=== PATIENT | female | born 1980 | race Caucasian/White ===

== ENCOUNTER → 2019-02-02 | Outpatient (CLI) | payer OTHER ==
[2019-02-02 16:41] LABS: ABSOLUTE BASOPHILS 0.1 thou/uL (0.0-0.2); ABSOLUTE EOSINOPHILS 0.2 thou/uL (0.0-0.7); ABSOLUTE LYMPHOCYTES 2.5 thou/uL (0.8-5.3); ABSOLUTE MONOCYTES 0.7 thou/uL (0.0-1.2); ABSOLUTE NEUTROPHILS 5.4 thou/uL (1.6-8.1); EOSINOPHILS 2.8 %; HEMATOCRIT 38.4 % (37.0-47.0); HEMOGLOBIN 12.7 gm/dL (12.0-15.0); LYMPHOCYTES 28.2 %; MCHC 33.2 g/dL (28.0-37.0); MCV 90.4 fL (80.0-100.0); MONOCYTES 7.7 %; MPV 8.2 fl. (7.2-11.1); NUCLEATED RBCS 0 /100WBC; PLATELET COUNT* 352 thou/uL (150-400); POLYS 60.3 %; RBC 4.24 mil/uL (4.20-5.00); RDW-CV 13.6 % (10.5-14.5); WBC 8.9 thou/uL (4.0-11.0)
[2019-02-02 17:01] LABS: ALBUMIN 3.7 g/dL (3.4-5.0); CALCIUM 8.9 mg/dL (8.5-10.1); CREATININE 0.8 mg/dL (0.6-1.3); TOTAL BILIRUBIN 0.1 mg/dL (<0.1-1.0); TOTAL PROTEIN 7.7 g/dL (6.4-8.2)
[2019-02-05 15:06] LABS: HIV-1/HIV-2 ANTIBODY Non Reactive (Non Reactive)
== END ==
LOC: M.LAB 16:22
PROVIDERS: Family Medicine
DX: Z01.419 Encounter for gynecological examination (general) (routine) without abnormal findings (principal); Z20.2 Contact with and (suspected) exposure to infections with a predominantly sexual mode of transmission

== ENCOUNTER → 2019-02-23 | Outpatient (CLI) | payer OTHER | LOC: M.RAD 02-16 09:30 | DX: Z12.31 Encounter for screening mammogram for malignant neoplasm of breast (principal) ==

== ENCOUNTER → 2019-03-12 | Outpatient (CLI) | payer OTHER | LOC: M.LAB 14:00 | DX: R79.89 Other specified abnormal findings of blood chemistry (principal) ==

== ENCOUNTER → 2019-08-28 | Outpatient (CLI) | payer OTHER | LOC: M.LAB 13:22 | DX: R53.82 Chronic fatigue, unspecified (principal) ==

== ENCOUNTER → 2020-03-17 | Outpatient (CLI) | payer OTHER ==
[2020-03-17 13:52] LABS: HEMATOCRIT 36.2 % (37.0-47.0); HEMOGLOBIN 12.4 gm/dL (12.0-15.0); MCH 31.1 pg (26.0-34.0); MCHC 34.4 g/dL (28.0-37.0); MCV 90.5 fL (80.0-100.0); MPV 8.7 fl. (7.2-11.1); RDW-CV 13.4 % (10.5-14.5); WBC 9.7 thou/uL (4.0-11.0)
[2020-03-17 14:03] LABS: ALBUMIN 3.4 g/dL (3.4-5.0); CALCIUM 8.5 mg/dL (8.5-10.1); CREATININE 0.7 mg/dL (0.6-1.3); POTASSIUM 3.8 mmol/L (3.5-5.1); TOTAL BILIRUBIN 0.2 mg/dL (<0.1-1.0); TOTAL PROTEIN 7.2 g/dL (6.4-8.2)
== END ==
LOC: M.LAB 13:13
PROVIDERS: Family Medicine
DX: Z20.828 Contact with and (suspected) exposure to other viral communicable diseases (principal); E03.9 Hypothyroidism, unspecified

== ENCOUNTER → 2020-04-01 | Outpatient (CLI) | payer OTHER | LOC: M.RAD 11:40 | DX: Z12.31 Encounter for screening mammogram for malignant neoplasm of breast (principal) ==

== ENCOUNTER → 2020-04-03 | Outpatient (CLI) | payer OTHER ==
[2020-04-04 06:08] LABS: GLYCOHEMOGLOBIN (HGB A1C) 6.4 % (4.8-5.6)
== END ==
LOC: M.LAB 15:38
PROVIDERS: Family Medicine
DX: R73.09 Other abnormal glucose (principal)

== ENCOUNTER → 2020-08-28 | Outpatient (CLI) | payer OTHER | LOC: M.LAB 15:15 | PROVIDERS: ATTEND Family Medicine | DX: U07.1 COVID-19 (principal); R79.89 Other specified abnormal findings of blood chemistry ==

== ENCOUNTER → 2021-02-18 | Outpatient (CLI) | payer OTHER ==
[2021-02-18 12:11] LABS: ABSOLUTE BASOPHILS 0.1 thou/uL (0.0-0.2); ABSOLUTE EOSINOPHILS 0.2 thou/uL (0.0-0.7); ABSOLUTE LYMPHOCYTES 2.1 thou/uL (0.8-5.3); ABSOLUTE MONOCYTES 0.7 thou/uL (0.0-1.2); ABSOLUTE NEUTROPHILS 7.7 thou/uL (1.6-8.1); EOSINOPHILS 1.9 %; HEMATOCRIT 38.6 % (37.0-47.0); HEMOGLOBIN 12.9 gm/dL (12.0-15.0); LYMPHOCYTES 19.6 %; MCH 30.8 pg (26.0-34.0); MCHC 33.5 g/dL (28.0-37.0); MCV 92.1 fL (80.0-100.0); MONOCYTES 6.9 %; MPV 8.1 fl. (7.2-11.1); NUCLEATED RBCS 0 /100WBC; PLATELET COUNT* 317 thou/uL (150-400); POLYS 70.6 %; RBC 4.19 mil/uL (4.20-5.00); RDW-CV 12.9 % (10.5-14.5); WBC 10.9 thou/uL (4.0-11.0)
[2021-02-18 12:24] LABS: ALBUMIN 3.9 g/dL (3.4-5.0); ALKALINE PHOSPHATASE 81 U/L (46-116); ANION GAP 10 mmol/L (7-16); BUN 14 mg/dL (7-18); CALCIUM 9.8 mg/dL (8.5-10.1); CHLORIDE 102 mmol/L (98-107); CHOLESTEROL 158 mg/dL (<200); CO2 26 mmol/L (21-32); CREATININE 0.8 mg/dL (0.6-1.3); GLUCOSE 105 mg/dL (70-99); HDL CHOLESTEROL 32 mg/dL (>40); LDL CHOLESTEROL 52 mg/dL (<100); POTASSIUM 4.3 mmol/L (3.5-5.1); SERUM ASSESSMENT Clear; SGOT 28 U/L (15-37); SGPT 67 U/L (30-65); SODIUM 138 mmol/L (136-145); TC:HDL 4.9 Ratio (Not establshd); TOTAL BILIRUBIN 0.5 mg/dL (<0.1-1.0); TOTAL PROTEIN 7.9 g/dL (6.4-8.2); TRIGLYCERIDE 371 mg/dL (<150); VLDL 74 mg/dL (<40)
== END ==
LOC: M.LAB 11:49
PROVIDERS: ATTEND Family Medicine
DX: E88.81 Metabolic syndrome and other insulin resistance (principal); E03.9 Hypothyroidism, unspecified; F33.1 Major depressive disorder, recurrent, moderate

== ENCOUNTER → 2021-04-13 | Outpatient (CLI) | payer OTHER | LOC: M.RAD 10:18 | PROVIDERS: ATTEND Family Medicine | DX: Z12.31 Encounter for screening mammogram for malignant neoplasm of breast (principal); N64.89 Other specified disorders of breast ==

== ENCOUNTER 2021-06-11 10:27 | Emergency (ER) | payer OTHER ==
[~2021-06-11] VITALS: Ht 157.5 cm; Wt 90.7 kg
[2021-06-11] MEDS ORDERED: GLUMETZA500 PO (10:41)
[2021-06-11] MEDS ORDERED: LEVOTHYROXINE100 MC2 PO (10:41)
[2021-06-11] MEDS ORDERED: PROZAC20 M1 PO (10:41)
[2021-06-11] MEDS ORDERED: [UNRECOGNIZED DRUG - REMARK] (10:42)
[2021-06-11] MEDS ORDERED: PROTONIX40 M2 PO (10:42)
[2021-06-11] MEDS ORDERED: PEPCID20 MG PO (10:42)
[2021-06-11] MEDS ORDERED: FLEXERIL PO (12:17)
[2021-06-11] MEDS ORDERED: HYDROCODON-ACE1 EAC7 PO (12:17)
[2021-06-11] MEDS ORDERED: PREDNISONE 20 M20 M1 PO (12:17)
[2021-06-11 12:26] VITALS: BP 122/74
== END 2021-06-11 12:27 | disposition home or self-care (01) ==
LOC: M.ERS 10:27
DX: M54.5 Low back pain (principal); K21.9 Gastro-esophageal reflux disease without esophagitis; E03.9 Hypothyroidism, unspecified; Z90.710 Acquired absence of both cervix and uterus

== ENCOUNTER → 2021-06-24 | Outpatient (CLI) | payer OTHER ==
[~2021-06-24] MED LIST: FLEXERIL PO; GLUMETZA500 PO; HYDROCODON-ACE1 EAC7 PO; LEVOTHYROXINE100 MC2 PO; PEPCID20 MG PO; PREDNISONE 20 M20 M1 PO; PROTONIX40 M2 PO; PROZAC20 M1 PO; [UNRECOGNIZED DRUG - REMARK]
== END ==
LOC: M.MRI 06-23 08:21
PROVIDERS: ATTEND Family Medicine
DX: M47.816 Spondylosis without myelopathy or radiculopathy, lumbar region (principal); M54.42 Lumbago with sciatica, left side; M54.41 Lumbago with sciatica, right side; M25.511 Pain in right shoulder

== ENCOUNTER 2021-08-13 15:00 | Emergency (ER) | payer OTHER ==
[~2021-08-13] VITALS: Ht 157.5 cm; Wt 90.7 kg
[2021-08-13] MEDS ORDERED: PREDNISONE 20 M20 MG PO (15:26)
[2021-08-13] MEDS ORDERED: TESSALON PERLE100 MG PO (15:26)
[2021-08-13] MEDS ORDERED: APAP W/CODEINE1 TA2 PO (15:26)
[2021-08-13] MEDS ORDERED: PROMETHAZI6.25 MG/5 PO (15:26)
[2021-08-13 15:41] VITALS: BP 123/54
== END 2021-08-13 15:42 | disposition home or self-care (01) ==
LOC: M.ERS 15:00
DX: U07.1 COVID-19 (principal); K21.9 Gastro-esophageal reflux disease without esophagitis; E03.9 Hypothyroidism, unspecified; Z90.711 Acquired absence of uterus with remaining cervical stump; Z79.899 Other long term (current) drug therapy; Z88.1 Allergy status to other antibiotic agents

== ENCOUNTER → 2021-10-06 | Outpatient (CLI) | payer OTHER ==
[~2021-10-06] MED LIST changes: +APAP W/CODEINE1 TA2 PO; +PREDNISONE 20 M20 MG PO; +PROMETHAZI6.25 MG/5 PO; +TESSALON PERLE100 MG PO
[2021-10-06 08:59] LABS: ABSOLUTE BASOPHILS 0.1 thou/uL (0.0-0.2); ABSOLUTE EOSINOPHILS 0.2 thou/uL (0.0-0.7); ABSOLUTE LYMPHOCYTES 1.8 thou/uL (0.8-5.3); ABSOLUTE MONOCYTES 0.6 thou/uL (0.0-1.2); ABSOLUTE NEUTROPHILS 4.4 thou/uL (1.6-8.1); BASOPHILS 0.8 %; EOSINOPHILS 3.4 %; HEMATOCRIT 38.4 % (37.0-47.0); HEMOGLOBIN 12.7 gm/dL (12.0-15.0); LYMPHOCYTES 26.1 %; MCH 31.2 pg (26.0-34.0); MCHC 33.1 g/dL (28.0-37.0); MCV 94.3 fL (80.0-100.0); MONOCYTES 7.8 %; NUCLEATED RBCS 0 /100WBC; PLATELET COUNT* 289 thou/uL (150-400); POLYS 61.9 %; RBC 4.07 mil/uL (4.20-5.00); RDW-CV 13.2 % (10.5-14.5); WBC 7.1 thou/uL (4.0-11.0)
[2021-10-06 09:21] LABS: ALBUMIN 3.6 g/dL (3.4-5.0); ALKALINE PHOSPHATASE 71 U/L (46-116); ANION GAP 10 mmol/L (7-16); BUN 12 mg/dL (7-18); CALCIUM 8.8 mg/dL (8.5-10.1); CHLORIDE 103 mmol/L (98-107); CHOLESTEROL 169 mg/dL (<200); CO2 25 mmol/L (21-32); CREATININE 0.7 mg/dL (0.6-1.3); GLUCOSE 120 mg/dL (70-99); HDL CHOLESTEROL 33 mg/dL (>40); LDL CHOLESTEROL 82 mg/dL (<100); SGOT 37 U/L (15-37); SGPT 79 U/L (30-65); SODIUM 138 mmol/L (136-145); TC:HDL 5.1 Ratio (Not establshd); TOTAL BILIRUBIN 0.5 mg/dL (<0.1-1.0); TOTAL PROTEIN 7.2 g/dL (6.4-8.2); TRIGLYCERIDE 273 mg/dL (<150); VLDL 55 mg/dL (<40)
[2021-10-06 09:22] LABS: SERUM ASSESSMENT Clear
[2021-10-07 07:09] LABS: GLYCOHEMOGLOBIN (HGB A1C) 6.3 % (4.8-5.6)
== END ==
LOC: M.LAB 08:29
PROVIDERS: ATTEND Family Medicine
DX: E88.81 Metabolic syndrome and other insulin resistance (principal); E03.9 Hypothyroidism, unspecified; F33.1 Major depressive disorder, recurrent, moderate

== ENCOUNTER → 2021-10-08 | Outpatient (CLI) | payer OTHER ==
--- NOTE | 2021-10-08 13:22 | EKG ---
[place] [address] ELECTROCARDIOGRAM REPORT Name: MONIKA WAYNE Room: [facility]#: [id number] Admission: 10/08/21 Attend Phys: Conchita Holland Discharge: Date of : 78 Date of Service: 10/08/21 1148 Report #: [id number] THIS REPORT FOR: //name// [facility] Test Date: 2021-10-08 Test Time: 11:48:05 Pat Name: MONIKA WAYNE Department: Room: Gender: F Jack Winder: OWEN : 1980 Requested By: Conchita Holland Order Number: [id number] Reading MD: Óscar Mathur Measurements Intervals [place] Rate: 76 P: 38 WY: 154 QRS: 37 QRSD: 102 T: 21 QT: 398 QTc: 448 Interpretive Statements Sinus rhythm No previous ECG available for comparison Electronically Signed On 10-08-2021 13:22:39 [employer] by Óscar Mathur [email or web address] <ELECTRONICALLY SIGNED> By: Óscar Mathur MD, [facility] 10/08/21 1322 1148 1148 Óscar Mathur MD, FACC /EPI
== END ==
LOC: M.LAB 11:24
PROVIDERS: ATTEND Family Medicine
DX: R06.02 Shortness of breath (principal); M25.50 Pain in unspecified joint; R53.82 Chronic fatigue, unspecified; R07.9 Chest pain, unspecified; Z86.16 Personal history of COVID-19